=== PATIENT | female | born 1975 | race Caucasian/White ===

== ENCOUNTER 2021-03-13 22:04 | Observation (INO) ==
[2021-03-14] MEDS ORDERED: *HR* FentaNYL (PF) 100 MCG/2 ML VIAL IVP ONE (00:08)
[2021-03-14 00:44] LABS: Basophils # 0.1 K/mcL (0.0-0.2); Basophils % 0.7 %; Eosinophils # 0.3 K/mcL (0.0-0.6); Eosinophils % 4.6 %; Hemoglobin 13.1 g/dL (11.5-15.4); Immature Granulocytes % 0.3 % (0-4); Lymphocytes # 1.4 K/mcL (0.6-4.6); Mean Corpuscular HGB Conc 32.8 g/dL (31.6-35.5); Mean Corpuscular Hemoglobin 29.8 pg (28.0-33.3); Mean Corpuscular Volume 90.9 fL (83.0-100.0); Mean Platelet Volume 11.1 fL (9.4-12.4); Monocytes # 0.8 K/mcL (0.0-1.3); Monocytes % 10.5 %; Neutrophils # 4.7 K/mcL (1.6-8.9); Platelet Count 258 K/mcL (140-400); Red Cell Distribution Width 13.4 % (11.5-14.5); Segmented Neutrophils % 64.9 %; White Blood Count 7.2 K/mcL (4.3-11.1)
[2021-03-14 00:54] LABS: Calcium 8.7 mg/dL (8.6-10.3)
[2021-03-14] MEDS ORDERED: Melatonin 3 MG TABLET PO PRN (00:58)
[2021-03-14] MEDS ORDERED: Acetaminophen 325 MG TABLET PO PRN (00:58)
[2021-03-14] MEDS ORDERED: Ondansetron ODT 4 MG TAB.RAPDIS SL PRN (00:58)
[2021-03-14] MEDS ORDERED: *HR* HYDROcodone/Acet 5/325 mg TABLET PO PRN (00:58)
[2021-03-14] MEDS ORDERED: *HR* OxyCODONE Immed Rel 5 MG TABLET PO PRN (00:58)
[2021-03-14] MEDS ORDERED: Naloxone 0.4 MG/ML INJ IVP PRN (00:58)
[2021-03-14 01:00] LABS: INR 1.1; Prothrombin Time 12.5 Seconds (9.4-12.1)
[2021-03-14] MEDS ORDERED: Nicotine 21 MG PATCH.TD24 TD SCH (03:00)
[2021-03-14 05:17] LABS: Basophils % 0.6 %; Eosinophils # 0.3 K/mcL (0.0-0.6); Hematocrit 39.3 % (35.3-44.9); Hemoglobin 12.2 g/dL (11.5-15.4); Immature Granulocytes % 0.3 % (0-4); Lymphocytes # 1.6 K/mcL (0.6-4.6); Lymphocytes % 24.3 %; Mean Corpuscular Hemoglobin 28.6 pg (28.0-33.3); Mean Corpuscular Volume 92.3 fL (83.0-100.0); Mean Platelet Volume 11.2 fL (9.4-12.4); Monocytes # 0.5 K/mcL (0.0-1.3); Monocytes % 8.2 %; Platelet Count 235 K/mcL (140-400); Red Blood Count 4.26 M/mcL (3.82-4.97); Red Cell Distribution Width 13.5 % (11.5-14.5); Segmented Neutrophils % 61.6 %; White Blood Count 6.5 K/mcL (4.3-11.1)
[2021-03-14 05:36] LABS: Albumin 3.7 g/dL (3.5-5.7); Albumin/Globulin Ratio 1.4 (1.1-2.2); Bilirubin,Total 0.3 mg/dL (0.3-1.0); Calcium 8.4 mg/dL (8.6-10.3); Globulin 2.7 g/dL (2.4-3.5); Magnesium 2.3 mg/dL (1.6-2.6); Potassium 3.5 mEq/L (3.5-5.1); Total Protein 6.4 g/dL (6.4-8.9)
[2021-03-14] MEDS ORDERED: Ringers Solution, Lactated 1,000 ML IVC ONE (07:26)
[2021-03-14] MEDS: Ringers Solution, Lactated 1,000 ML IVC SCH ×2 (10:39→19:30)
[2021-03-14] MEDS: *HR* OxyCODONE/APAP 5/325 TABLET PO PRN ×2 (10:42→17:41)
[2021-03-14 14:29] LABS: Bilirubin,Urine Negative (Negative); Blood,Urine Negative (Negative); Clarity,Urine Clear (Clear); Color,Urine Light-Yellow (Yellow); Glucose,Urine (UA) Normal (Normal); Ketones,Urine Negative (Negative); Leukocyte Esterase,Urine Negative (Negative); Nitrite,Urine Negative (Negative); Protein,Urine Trace mg/dL (Neg-Trace); Specific Gravity,Urine 1.019 (1.010-1.025); Urobilinogen,Urine Normal (Normal)
[2021-03-14 14:40] LABS: Creatinine,Urine 117 mg/dL; Microalbum/Creatinine Ratio,Ur 35 mcg/mg (Less than 30); Microalbumin,Urine 41 mg/L
[2021-03-14] MEDS ORDERED: hydrOXYzine pamoate 25 MG CAPSULE PO ONE (19:43)
[2021-03-14] MEDS ORDERED: QUEtiapine Fumarate 100 MG TABLET PO SCH (21:00)
[2021-03-15] MEDS: Ringers Solution, Lactated 1,000 ML IVC SCH (03:46)
[2021-03-15] MEDS: *HR* OxyCODONE/APAP 5/325 TABLET PO PRN ×2 (03:48→09:10)
[2021-03-15 04:20] VITALS: O2SAT 93
[2021-03-15 05:37] LABS: Phosphorous 3.8 mg/dL (2.7-4.5)
[2021-03-15 06:22] VITALS: BP 99/64; PULSE 76; TEMP 98.6
[2021-03-15] MEDS ORDERED: BuPROPion XL (24 HR) 150 MG TABLET PO SCH (09:00)
== END 2021-03-15 13:01 | disposition home or self-care (01) ==
LOC: 4WAOSI 22:04 → EMEROOARM 22:04 → SUATTDRO 03-14 00:52 → 4WAOSI 03-14 01:37
PROVIDERS: ADMIT Internal Medicine; ATTEND Internal Medicine

== ENCOUNTER 2021-03-27 17:29 | Observation (INO) ==
[2021-03-27] MEDS ORDERED: Isovue-370 500 ML BOTTLE IVP ONE (18:32)
[2021-03-27 18:40] LABS: Basophils % 0.4 %; Eosinophils # 0.2 K/mcL (0.0-0.6); Hematocrit 45.1 % (35.3-44.9); Hemoglobin 14.2 g/dL (11.5-15.4); Immature Granulocytes % 0.3 % (0-4); Lymphocytes # 1.7 K/mcL (0.6-4.6); Lymphocytes % 22.4 %; Mean Corpuscular HGB Conc 31.5 g/dL (31.6-35.5); Mean Corpuscular Hemoglobin 28.9 pg (28.0-33.3); Mean Corpuscular Volume 91.7 fL (83.0-100.0); Mean Platelet Volume 11.1 fL (9.4-12.4); Monocytes # 0.6 K/mcL (0.0-1.3); Monocytes % 8.1 %; Neutrophils # 5.1 K/mcL (1.6-8.9); Platelet Count 261 K/mcL (140-400); Red Blood Count 4.92 M/mcL (3.82-4.97); Red Cell Distribution Width 13.3 % (11.5-14.5); Segmented Neutrophils % 65.8 %; White Blood Count 7.7 K/mcL (4.3-11.1)
[2021-03-27 18:47] LABS: INR 1.2
[2021-03-27 18:50] LABS: Activated Partial Thrombo Time 38.1 Seconds (26.0-36.0)
[2021-03-27 19:04] LABS: BUN/Creatinine Ratio 15 (6-26); Blood Urea Nitrogen 17 mg/dL (6-20); Calcium 9.5 mg/dL (8.6-10.3); Carbon Dioxide 26 mEq/L (23-29); Chloride 103 mEq/L (98-107); Glucose 136 mg/dL (70-105); Osmolality,Calculated 288 (280-300); Potassium 3.3 mEq/L (3.5-5.1); Sodium 137 mEq/L (136-145); Troponin I < 0.03 ng/mL (< 0.04); eGFR For African Americans > 60 (> 60); eGFR For Non-African Americans 52 (> 60)
[2021-03-27 19:57] LABS: Bacteria,Urine Few per hpf (None-Few); Mucus,Urine Few per lpf (None-Few); RBC,Urine 0-3 per hpf (0-3); Squamous Epithelial Cell,Urine Few per hpf (None-Few); WBC,Urine 0-3 per hpf (0-3)
[2021-03-27 20:03] LABS: Bilirubin,Urine Negative (Negative); Blood,Urine Negative (Negative); Clarity,Urine Clear (Clear); Color,Urine Yellow (Yellow); Glucose,Urine (UA) Normal (Normal); Ketones,Urine Negative (Negative); Leukocyte Esterase,Urine Negative (Negative); Nitrite,Urine Negative (Negative); PH,Urine 6.5 pH Units (5.0-8.0); Protein,Urine Negative (Neg-Trace); Urobilinogen,Urine Normal (Normal)
[2021-03-27] MEDS ORDERED: Insulin LISPRO 300 UNITS/3 ML VIAL SUBQ ONE (20:46)
[2021-03-27] MEDS ORDERED: *HR* Heparin 5,000 UNIT/ML VIAL IVP PRN ×2 (20:48)
[2021-03-27] MEDS ORDERED: *HR* Heparin 5,000 UNIT/ML VIAL IVP ONE (20:48)
[2021-03-27] MEDS ORDERED: Heparin 25,000UNIT/250ML 1/2NS 25,000 UNIT/250 ML IV.SOLN IVC SCH (21:00)
[2021-03-27 21:12] LABS: Hematocrit 44.4 % (35.3-44.9); Hemoglobin 14.3 g/dL (11.5-15.4); Mean Corpuscular HGB Conc 32.2 g/dL (31.6-35.5); Mean Corpuscular Hemoglobin 29.1 pg (28.0-33.3); Mean Corpuscular Volume 90.2 fL (83.0-100.0); Mean Platelet Volume 10.9 fL (9.4-12.4); Platelet Count 245 K/mcL (140-400); Red Blood Count 4.92 M/mcL (3.82-4.97); Red Cell Distribution Width 13.3 % (11.5-14.5)
[2021-03-27 21:23] LABS: Heparin anti-factor XA UFH < 0.04 IU/mL (0.30-0.70)
[2021-03-27 21:24] LABS: INR 1.1; Prothrombin Time 12.3 Seconds (9.4-12.1)
[2021-03-27] MEDS ORDERED: 0.9 % Sodium Chloride 500 ML IV ONE (21:53)
[2021-03-28 02:22] LABS: Hematocrit 42.4 % (35.3-44.9); Hemoglobin 13.9 g/dL (11.5-15.4); Mean Corpuscular HGB Conc 32.8 g/dL (31.6-35.5); Mean Corpuscular Hemoglobin 29.8 pg (28.0-33.3); Platelet Count 242 K/mcL (140-400); Red Blood Count 4.66 M/mcL (3.82-4.97); Red Cell Distribution Width 13.3 % (11.5-14.5); White Blood Count 7.2 K/mcL (4.3-11.1)
[2021-03-28 02:30] LABS: INR 1.2; Prothrombin Time 13.1 Seconds (9.4-12.1)
[2021-03-28 02:36] LABS: Acetaminophen < 10 mcg/mL (10-20); Ethanol < 10 mg/dL (Less than 10); Salicylate < 2.5 mg/dL (15.0-30.0)
[2021-03-28 02:37] LABS: Alanine Aminotransferase 10 Units/L (7-52); Albumin 3.8 g/dL (3.5-5.7); Albumin/Globulin Ratio 1.4 (1.1-2.2); Alkaline Phosphatase 82 Units/L (34-104); Aspartate Amino Transferase 12 Units/L (13-39); BUN/Creatinine Ratio 16 (6-26); Bilirubin,Total 0.5 mg/dL (0.3-1.0); Blood Urea Nitrogen 17 mg/dL (6-20); Carbon Dioxide 26 mEq/L (23-29); Chloride 105 mEq/L (98-107); Chol/HDL Ratio 4.7 (0-4.9); Cholesterol 170 mg/dL (< 200); Globulin 2.7 g/dL (2.4-3.5); Glucose 118 mg/dL (70-105); HDL Cholesterol 36 mg/dL (40-59); LDL Cholesterol,Calculated 116 mg/dL (< 100); Osmolality,Calculated 287 (280-300); Potassium 3.7 mEq/L (3.5-5.1); Sodium 137 mEq/L (136-145); Total Protein 6.5 g/dL (6.4-8.9); Triglycerides 92 mg/dL (< 150); eGFR For African Americans > 60 (> 60); eGFR For Non-African Americans 57 (> 60)
[2021-03-28 02:48] LABS: Thyroid Stimulating Hormone 1.353 mcIU/mL (0.340-5.600)
[2021-03-28] MEDS ORDERED: Perflutren Lipid Microsphere 1.3 ML in 0.9 % Sodium Chloride 8.7 ML IVP PRN (05:16)
[2021-03-28] MEDS ORDERED: Acetaminophen 325 MG TABLET PO PRN (06:03)
[2021-03-28] MEDS ORDERED: Naloxone 0.4 MG/ML INJ IVP PRN (06:03)
[2021-03-28] MEDS ORDERED: Ondansetron 4 MG/2 ML VIAL IVP PRN (06:03)
[2021-03-28] MEDS ORDERED: Ipratropium/Albuterol Neb 3 ML IH PRN (06:09)
[2021-03-28] MEDS: BuPROPion XL (24 HR) 150 MG TABLET PO SCH (08:11)
[2021-03-28] MEDS: Aspirin Enteric Coated 81 MG Tablet PO SCH (08:11)
[2021-03-28] MEDS: Pregabalin 75 MG CAPSULE PO SCH ×2 (08:11→20:29)
[2021-03-28] MEDS: FLUoxetine 20 MG CAPSULE PO SCH (08:11)
[2021-03-28] MEDS: Nicotine 21 MG PATCH.TD24 TD SCH (08:12)
[2021-03-28] MEDS: clonazePAM 1 MG TABLET PO PRN (08:14)
[2021-03-28 08:38] LABS: Bilirubin,Urine Negative (Negative); Blood,Urine Negative (Negative); Clarity,Urine Clear (Clear); Color,Urine Yellow (Yellow); Glucose,Urine (UA) Normal (Normal); Ketones,Urine Negative (Negative); Leukocyte Esterase,Urine Negative (Negative); Nitrite,Urine Negative (Negative); PH,Urine 6.5 pH Units (5.0-8.0); Protein,Urine Trace mg/dL (Neg-Trace); Specific Gravity,Urine > 1.030 (1.010-1.025); Urobilinogen,Urine Normal (Normal)
[2021-03-28 08:50] LABS: Estimated Average Glucose 111 mg/dl; Hemoglobin A1C 5.5 %
[2021-03-28 09:46] LABS: Amphetamine Screen,Urine Negative ng/mL (Cutoff=1000); Barbiturate Screen,Urine Negative ng/mL (Cutoff=200); Benzodiazepines Screen,Urine Positive ng/mL (Cutoff=200); Cannabinoid Screen,Urine Negative ng/mL (Cutoff = 50); Cocaine Screen,Urine Negative ng/mL (Cutoff= 300); Opiate Screen,Urine Negative ng/mL (Cutoff=300); Phencyclidine Screen,Urine Negative ng/mL (Cutoff=25)
[2021-03-28] MEDS ORDERED: Heparin 25,000 UNIT/250 ML 25,000 UNIT/250 ML IV.SOLN IVC SCH (13:00)
[2021-03-28] MEDS ORDERED: *HR* HYDROcodone/Acet 5/325 mg TABLET PO ONE (19:51)
[2021-03-28] MEDS ORDERED: 0.9 % Sodium Chloride 500 ML ONE (20:22)
[2021-03-28] MEDS: 0.9 % Sodium Chloride 500 ML IV ONE ×2 (20:28→20:44)
[2021-03-28] MEDS: Apixaban 5 MG TABLET PO SCH (20:29)
[2021-03-28] MEDS: traZODone 50 MG TABLET PO SCH (20:29)
[2021-03-28] MEDS: QUEtiapine Fumarate 100 MG TABLET PO SCH (20:30)
[2021-03-29] MEDS: FLUoxetine 20 MG CAPSULE PO SCH (07:40)
[2021-03-29] MEDS: BuPROPion XL (24 HR) 150 MG TABLET PO SCH (07:40)
[2021-03-29] MEDS: Apixaban 5 MG TABLET PO SCH ×2 (07:41→20:43)
[2021-03-29] MEDS: Pregabalin 75 MG CAPSULE PO SCH ×2 (07:41→20:45)
[2021-03-29] MEDS: Nicotine 21 MG PATCH.TD24 TD SCH (07:41)
[2021-03-29] MEDS: Aspirin Enteric Coated 81 MG Tablet PO SCH (07:41)
[2021-03-29] MEDS ORDERED: NON-FORMULARY MEDICATION 1 EACH EACH (Omeprazole [Prilosec] 40 MG Capsule.Dr) PO SCH (09:00)
[2021-03-29] MEDS: traZODone 50 MG TABLET PO SCH (20:44)
[2021-03-29] MEDS: QUEtiapine Fumarate 100 MG TABLET PO SCH (20:45)
[2021-03-30] MEDS: Pregabalin 75 MG CAPSULE PO SCH ×2 (09:06→19:27)
[2021-03-30] MEDS: Nicotine 21 MG PATCH.TD24 TD SCH (09:06)
[2021-03-30] MEDS: FLUoxetine 20 MG CAPSULE PO SCH (09:07)
[2021-03-30] MEDS: clonazePAM 1 MG TABLET PO PRN (09:07)
[2021-03-30] MEDS: Apixaban 5 MG TABLET PO SCH ×2 (09:07→19:27)
[2021-03-30] MEDS: BuPROPion XL (24 HR) 150 MG TABLET PO SCH (09:07)
[2021-03-30] MEDS: Aspirin Enteric Coated 81 MG Tablet PO SCH (09:07)
[2021-03-30] MEDS: traZODone 50 MG TABLET PO SCH (19:27)
[2021-03-30] MEDS: QUEtiapine Fumarate 100 MG TABLET PO SCH (19:27)
[2021-03-31] MEDS: Apixaban 5 MG TABLET PO SCH (08:45)
[2021-03-31] MEDS: Aspirin Enteric Coated 81 MG Tablet PO SCH (08:45)
[2021-03-31] MEDS: Pregabalin 75 MG CAPSULE PO SCH (08:46)
[2021-03-31] MEDS: FLUoxetine 20 MG CAPSULE PO SCH (08:48)
[2021-03-31] MEDS: BuPROPion XL (24 HR) 150 MG TABLET PO SCH (08:48)
[2021-03-31] MEDS: Nicotine 21 MG PATCH.TD24 TD SCH (08:50)
[2021-03-31 11:24] VITALS: BP 124/76; PULSE 90; TEMP 98.4; O2SAT 93
[2021-03-31 15:15] LABS: Influenza A PCR Negative (Negative); Influenza B PCR Negative (Negative); Resp. Syncytial Virus PCR Negative (Negative)
[2021-03-31 15:16] LABS: SARS-CoV-2 by PCR (In House) Negative (Negative)
== END 2021-03-31 17:00 | disposition other institution (70) ==
LOC: EMEROOARM 17:29 → 3BNU 17:29 → SUATTDRO 22:07 → 3BNU 22:58
PROVIDERS: ADMIT Internal Medicine; ATTEND Internal Medicine

== ENCOUNTER 2021-08-08 11:00 | Observation (INO) ==
[2021-08-08] MEDS ORDERED: 0.9 % Sodium Chloride 1,000 ML IVC ONE (11:16)
[2021-08-08] MEDS ORDERED: Isovue-370 500 ML BOTTLE IVP ONE (11:17)
[2021-08-08 11:27] LABS: Hematocrit 38.5 % (35.3-44.9); Hemoglobin 12.6 g/dL (11.5-15.4); Mean Corpuscular HGB Conc 32.7 g/dL (31.6-35.5); Mean Corpuscular Hemoglobin 29.5 pg (28.0-33.3); Mean Corpuscular Volume 90.2 fL (83.0-100.0); Mean Platelet Volume 10.5 fL (9.4-12.4); Platelet Count 303 K/mcL (140-400); Red Blood Count 4.27 M/mcL (3.82-4.97); Red Cell Distribution Width 14.5 % (11.5-14.5); White Blood Count 7.7 K/mcL (4.3-11.1)
[2021-08-08 11:52] LABS: Acetaminophen < 10 mcg/mL (10-20); BUN/Creatinine Ratio 14 (6-26); Blood Urea Nitrogen 19 mg/dL (6-20); Calcium 8.8 mg/dL (8.6-10.3); Carbon Dioxide 31 mEq/L (23-29); Chloride 97 mEq/L (98-107); Ethanol < 10 mg/dL (Less than 10); Glucose 107 mg/dL (70-105); Osmolality,Calculated 287 (280-300); Potassium 2.8 mEq/L (3.5-5.1); Salicylate < 2.5 mg/dL (15.0-30.0); Sodium 137 mEq/L (136-145); Troponin I < 0.03 ng/mL (< 0.04); eGFR For African Americans 50 (> 60); eGFR For Non-African Americans 41 (> 60)
[2021-08-08] MEDS ORDERED: Potassium Chloride Elixir 20 MEQ/15 ML UDC PO ONE (12:35)
[2021-08-08 14:03] VITALS: O2SAT 98
[2021-08-08] MEDS ORDERED: Naloxone 0.4 MG/ML INJ IVP PRN (14:18)
[2021-08-08 15:13] VITALS: BP 137/86; PULSE 102; TEMP 97.8
== END 2021-08-08 16:28 | disposition left against medical advice (07) ==
LOC: EMEROOARM 11:00 → 3BNU 11:00
PROVIDERS: ADMIT Internal Medicine; ATTEND Internal Medicine

== ENCOUNTER 2021-12-03 02:31 | Observation (INO) ==
[2021-12-03 03:15] LABS: Basophils # 0.1 K/mcL (0.0-0.2); Basophils % 0.3 %; Eosinophils % 0.1 %; Hematocrit 35.5 % (35.3-44.9); Hemoglobin 11.4 g/dL (11.5-15.4); Immature Granulocytes % 0.6 % (0-4); Lymphocytes # 0.9 K/mcL (0.6-4.6); Lymphocytes % 4.5 %; Mean Corpuscular HGB Conc 32.1 g/dL (31.6-35.5); Mean Corpuscular Hemoglobin 29.2 pg (28.0-33.3); Mean Platelet Volume 10.7 fL (9.4-12.4); Monocytes # 1.3 K/mcL (0.0-1.3); Neutrophils # 16.5 K/mcL (1.6-8.9); Platelet Count 274 K/mcL (140-400); Red Cell Distribution Width 13.9 % (11.5-14.5); Segmented Neutrophils % 87.5 %; White Blood Count 18.8 K/mcL (4.3-11.1)
[2021-12-03 03:28] LABS: INR 1.2; Prothrombin Time 13.9 Seconds (9.4-12.1)
[2021-12-03 03:39] LABS: Bacteria,Urine Few per hpf (None-Few); Bilirubin,Urine Negative (Negative); Blood,Urine Small (Negative); Clarity,Urine Clear (Clear); Color,Urine Yellow (Yellow); Glucose,Urine (UA) Normal (Normal); Ketones,Urine >150 mg/dL (Negative); Leukocyte Esterase,Urine Negative (Negative); Mucus,Urine Few per lpf (None-Few); Nitrite,Urine Negative (Negative); Protein,Urine 100 mg/dL (Neg-Trace); RBC,Urine 0-3 per hpf (0-3); Specific Gravity,Urine 1.029 (1.010-1.025); Squamous Epithelial Cell,Urine Few per hpf (None-Few); WBC,Urine 0-3 per hpf (0-3)
[2021-12-03 03:42] LABS: Acetaminophen < 10 mcg/mL (10-20); Alanine Aminotransferase 23 Units/L (7-52); Albumin 3.7 g/dL (3.5-5.7); Albumin/Globulin Ratio 1.2 (1.1-2.2); Alkaline Phosphatase 109 Units/L (34-104); Aspartate Amino Transferase 41 Units/L (13-39); BUN/Creatinine Ratio 22 (6-26); Bilirubin,Direct 0.4 mg/dL (0.0-0.2); Bilirubin,Indirect 0.5 mg/dL (0.0-1.0); Bilirubin,Total 0.9 mg/dL (0.3-1.0); Blood Urea Nitrogen 21 mg/dL (6-20); Calcium 8.7 mg/dL (8.6-10.3); Carbon Dioxide 17 mEq/L (23-29); Chloride 108 mEq/L (98-107); Creatine Kinase 915 Units/L (30-223); Ethanol < 10 mg/dL (Less than 10); Glucose 79 mg/dL (70-105); Osmolality,Calculated 290 (280-300); Potassium 3.8 mEq/L (3.5-5.1); Salicylate < 2.5 mg/dL (15.0-30.0); Sodium 139 mEq/L (136-145); Total Protein 6.7 g/dL (6.4-8.9); Troponin I 0.05 ng/mL (< 0.04)
[2021-12-03] MEDS ORDERED: *HR* LORazepam 2 MG/ML VIAL IVP ONE (03:47)
[2021-12-03] MEDS ORDERED: 0.9 % Sodium Chloride 1,000 ML IVC ONE ×2 (03:50→07:57)
[2021-12-03] MEDS ORDERED: 0.9 % Sodium Chloride 1,000 ML IV ONE (03:50)
[2021-12-03 03:51] LABS: Amphetamine Screen,Urine Positive ng/mL (Cutoff=1000); Barbiturate Screen,Urine Negative ng/mL (Cutoff=200); Benzodiazepines Screen,Urine Negative ng/mL (Cutoff=200); Cannabinoid Screen,Urine Negative ng/mL (Cutoff = 50); Cocaine Screen,Urine Negative ng/mL (Cutoff= 300); Opiate Screen,Urine Positive ng/mL (Cutoff=300); Phencyclidine Screen,Urine Negative ng/mL (Cutoff=25)
[2021-12-03] MEDS ORDERED: Ziprasidone 20 MG, Closed System Device IM Kit 1 EACH in Water for inj. (sterile) 1 ML IM ONE (05:21)
[2021-12-03] MEDS ORDERED: Ziprasidone 20 MG/VIAL VIAL IM ONE (05:24)
[2021-12-03] MEDS ORDERED: Water for inj. (sterile) 10 ML ONE (05:24)
[2021-12-03] MEDS ORDERED: Naloxone 0.4 MG/ML INJ IVP PRN (07:52)
[2021-12-03] MEDS ORDERED: Acetaminophen 325 MG TABLET PO PRN (07:57)
[2021-12-03] MEDS ORDERED: Ondansetron 4 MG/2 ML VIAL IVP PRN (07:57)
[2021-12-03] MEDS ORDERED: Vancomycin (wt based) 1,000 MG VIAL IVPB SCH (08:00)
[2021-12-03] MEDS ORDERED: Vancomycin 1,500 MG/265 ML IV.SOLN IVPB ONE (10:00)
[2021-12-03] MEDS: Cefepime HCl 2,000 MG in 0.9 % Sodium Chloride 10 ML IVP SCH ×2 (10:10→17:54)
[2021-12-03] MEDS: Ringers Solution, Lactated 1,000 ML IVC SCH ×2 (11:06→21:33)
[2021-12-03] MEDS ORDERED: *HR* LORazepam 2 MG/ML VIAL IVP PRN (11:12)
[2021-12-03 16:46] LABS: Troponin I 0.04 ng/mL (< 0.04)
[2021-12-03] MEDS ORDERED: traZODone 50 MG TABLET PO PRN (18:22)
[2021-12-03 19:33] LABS: Adenovirus Not Detected (Not Detect); Bordetella Pertussis Not Detected (Not Detect); Chlamydophila pneumoniae Not Detected (Not Detect); Coronavirus 229E Not Detected (Not Detect); Coronavirus HKU1 Not Detected (Not Detect); Coronavirus NL63 Not Detected (Not Detect); Coronavirus OC43 Not Detected (Not Detect); Human Metapneumovirus Not Detected (Not Detect); Human Rhinovirus/Enterovirus Not Detected (Not Detect); Influenza A Subtype 2009 H1 Not Detected (Not Detect); Influenza B Not Detected (Not Detect); Mycoplasma pneumoniae Not Detected (Not Detect); Parainfluenza Virus 1 Not Detected (Not Detect); Parainfluenza Virus 2 Not Detected (Not Detect); Parainfluenza Virus 3 Not Detected (Not Detect); Parainfluenza Virus 4 Not Detected (Not Detect); Respiratory Syncytial Virus Not Detected (Not Detect); SARS-CoV-2 Not Detected (Not Detect)
[2021-12-03] MEDS ORDERED: BuPROPion SR (12 HR) 100 MG TABLET PO SCH (21:00)
[2021-12-03] MEDS ORDERED: Famotidine 20 MG TABLET PO SCH (21:00)
[2021-12-03] MEDS ORDERED: QUEtiapine Fumarate 100 MG TABLET PO SCH (21:00)
[2021-12-03] MEDS: Vancomycin 1,500 MG/265 ML IV.SOLN IVPB SCH (23:40)
[2021-12-04] MEDS: Cefepime HCl 2,000 MG in 0.9 % Sodium Chloride 10 ML IVP SCH ×2 (01:54→09:41)
[2021-12-04 02:54] LABS: Hematocrit 29.7 % (35.3-44.9); Mean Corpuscular HGB Conc 31.6 g/dL (31.6-35.5); Mean Corpuscular Hemoglobin 29.7 pg (28.0-33.3); Mean Corpuscular Volume 93.7 fL (83.0-100.0); Mean Platelet Volume 10.5 fL (9.4-12.4); Platelet Count 226 K/mcL (140-400); Red Blood Count 3.17 M/mcL (3.82-4.97); Red Cell Distribution Width 14.3 % (11.5-14.5); White Blood Count 10.4 K/mcL (4.3-11.1)
[2021-12-04 02:55] LABS: Hemoglobin 9.4 g/dL (11.5-15.4)
[2021-12-04 03:24] LABS: BUN/Creatinine Ratio 17 (6-26); Blood Urea Nitrogen 13 mg/dL (6-20); Calcium 7.5 mg/dL (8.6-10.3); Carbon Dioxide 16 mEq/L (23-29); Chloride 115 mEq/L (98-107); Chol/HDL Ratio 4.8 (0-4.9); Cholesterol 140 mg/dL (< 200); Glucose 73 mg/dL (70-105); HDL Cholesterol 29 mg/dL (40-59); LDL Cholesterol,Calculated 88 mg/dL (< 100); Magnesium 1.7 mg/dL (1.6-2.6); Osmolality,Calculated 287 (280-300); Potassium 3.4 mEq/L (3.5-5.1); Sodium 139 mEq/L (136-145); Triglycerides 116 mg/dL (< 150)
[2021-12-04] MEDS ORDERED: Sodium Bicarbonate 75 MEQ in 0.45 % Sodium Chloride 1,000 ML IVC SCH (08:00)
[2021-12-04] MEDS ORDERED: Venlafaxine XR (24 HR) 150 MG CAP.ER.24H PO SCH (09:00)
[2021-12-04] MEDS ORDERED: Fluticasone Propionate Nasal 50 MCG/SPRAY BOTTLE NS SCH (09:00)
[2021-12-04] MEDS ORDERED: FLUoxetine 20 MG CAPSULE PO SCH (09:00)
[2021-12-04] MEDS ORDERED: BuPROPion XL (24 HR) 150 MG TABLET PO SCH (09:00)
[2021-12-04] MEDS: Vancomycin 1,500 MG/265 ML IV.SOLN IVPB SCH (09:49)
[2021-12-04 10:43] LABS: Estimated Average Glucose 114 mg/dl; Hemoglobin A1C 5.6 %
[2021-12-04] MEDS ORDERED: levoFLOXacin 750 MG/150 ML 750 MG/150 ML BAG IVPB SCH (10:45)
[2021-12-04 10:47] VITALS: BP 147/83; PULSE 106; TEMP 98.5; O2SAT 94
== END 2021-12-04 14:55 | disposition left against medical advice (07) ==
LOC: EMEROOARM 02:31 → 3BNU 02:31 → SUATTDRO 14:47 → 3BNU 15:34
PROVIDERS: ADMIT Internal Medicine; ATTEND Internal Medicine